=== PATIENT | female | born 1985 | race Caucasian/White ===

== ENCOUNTER 2020-10-08 06:12 | Inpatient (IN) | payer OTHER, BC ==
[~2020-10-08] VITALS: Ht 166.4 cm; Wt 87.1 kg
--- NOTE | 2020-10-08 06:30 | NUR ---
RAPID COVID TEST DONE PER DR ORDER. COVID TEST COLLECTED FROM BOTH NARES. LEFT SIDE GOOD. RIGHT SIDE HAD OBSTRUCTION. PT TOLERATED WELL.
--- NOTE | 2020-10-08 14:59 | PR ---
[facility] [address] [place], [place] [address] Signed PP Progress Notes Datetime Report Generated by CPN: 10/08/2020 14:58 SUBJECTIVE: [id number] Pain: Abnormal Nausea/Vomiting: Denies Flatus: Yes Bowel Movement: No Vital Signs: [id number] Vital Signs: Reviewed; Within Normal Limits Cardiovascular: Normal Respiratory: Normal Abdomen/Uterus: Normal Lochia: Normal Breasts: Normal CVA Tenderness: Normal Extremities: Normal Progress: Normal Exam Comments: NAD Doing well Lochia moderate Pain well controlled with motrin Anticipate DC to home today, declines transfer to [facility] for continued care IMPRESSION/PLAN/PROCEDURES: [id number] Impression: Normal Progression Plan: Continue Present Management; Discharge Procedures: None Progress Notes: 35 yo [id number] PPD#0 s/p -Doing well -Discharge criteria met -Planning partner vasectomy for contraception Follow-up plan: 2 weeks for telemedicine appt, 6 weeks in office, sooner if needed Signing Physician: Dread Lord DO Copies: *Electronically Signed* 10/08/20 1455 DREAD LORD DO PATIENT NAME: FANNY FERNANDES PROGRESS NOTE DATE OF : 89 PHYSICIAN: DREAD LORD DO RPT #: [id number] REPORT IS CONFIDENTIAL AND NOT TO BE RELEASED WITHOUT AUTHORIZATION [address] [address] Signed ~ *Electronically Signed* 10/08/20 1458 DREAD LORD DO PATIENT NAME: FANNY FERNANDES PROGRESS NOTE DATE OF : 89 PHYSICIAN: DREAD LORD DO RPT #: [id number] REPORT IS CONFIDENTIAL AND NOT TO BE RELEASED WITHOUT AUTHORIZATION
== END 2020-10-08 18:30 | disposition home or self-care (01) | DRG 807 ==
LOC: FBCO 06:12 → FBC 06:22
PROVIDERS: ADMIT Obstetrics & Gynecology; ATTEND Obstetrics & Gynecology
PROC: 10E0XZZ Delivery of Products of Conception, External Approach (ICD-10-PCS; principal; 2020-10-08)
PROC: 0HQ9XZZ Repair Perineum Skin, External Approach (ICD-10-PCS; 2020-10-08)
PROC: 00HU33Z Insertion of Infusion Device into Spinal Canal, Percutaneous Approach (ICD-10-PCS; 2020-10-08)
PROC: 3E0R3BZ Introduction of Anesthetic Agent into Spinal Canal, Percutaneous Approach (ICD-10-PCS; 2020-10-08)
DX: O76 Abnormality in fetal heart rate and rhythm complicating labor and delivery (principal); Z37.0 Single live birth; O70.0 First degree perineal laceration during delivery; Z3A.40 40 weeks gestation of pregnancy; Z20.822 Contact with and (suspected) exposure to COVID-19; Z87.891 Personal history of nicotine dependence
CPT/HCPCS: 85027; C9803; J2001; J2590; J7121; U0003